=== PATIENT | female | born 1990 | race Caucasian/White ===

== ENCOUNTER 2017-10-18 01:26 | Inpatient (IN) | payer OTHER ==
[2017-10-18] MEDS ORDERED: Oxytocin 10 Units/1 ML SDV ONE (01:46)
[2017-10-18] MEDS ORDERED: Oxytocin 10 Units/1 ML SDV IM ONE (01:55)
--- NOTE | 2017-10-18 01:56 | PCM.LDHP ---
L&D History of Present Illness - General Date of Service: 10/18/17 Admit Problem/Dx: Patient Status Order with Admit Dx/Problem 10/18/17 01:53 Patient Status [ADT] Routine Admission Diagnosis/Problem Admission Diagnosis/Problem Normal Source of Information: Patient History Limitations: Reports: No Limitations - History of Present Illness Introduction:: 27 y/o at 38 5/7 wks who presented to L&D in active labor. Arrived on floor at 0130. Nursing called for delivery at 0133. 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: : 3 Para: 2 LMP (Approximate): Hematologic History: Reports: Anemia - Past Surgical History HEENT Surgical History: Reports: Tonsillectomy Musculoskeletal Surgical History: Reports: Arthroscopic Knee (2007 and 2011) Social & Family History - Family History Family Medical History: Noncontributory - Tobacco Use Smoking Status *Q: Never Smoker - Caffeine Use Caffeine Use: Reports: Soda - Alcohol Use Alcohol Use History: No - Recreational Drug Use Recreational Drug Use: No H&P Review of Systems - Review of Systems: Review Of Systems: See Below General: Reports: No Symptoms Pulmonary: Reports: No Symptoms Cardiovascular: Reports: No Symptoms Gastrointestinal: Reports: No Symptoms Genitourinary: Reports: No Symptoms Musculoskeletal: Reports: No Symptoms Psychiatric: Reports: No Symptoms L&D Exam - Exam Exam: See Below - Exam General: Alert, Oriented, Cooperative Lungs: Clear to Auscultation, Normal Respiratory Effort Cardiovascular: Regular Rate, Regular Rhythm GI/Abdominal Exam: Soft, Non-Tender Genitourinary: Other (Clamped cord present on exam. No tears) Extremities: Normal Inspection Skin: Warm, Dry, Intact - Problem List (1) 39 weeks gestation of SNOMED Code(s): 86913745 ICD Code: Z3A.39 - 39 WEEKS GESTATION OF Status: Acute Current Visit: Yes (2) Vaginal delivery SNOMED Code(s): 930763144 ICD Code: O80 - ENCOUNTER FOR FULL-TERM UNCOMPLICATED DELIVERY Status: Acute Current Visit: Yes (3) Rh negative state in antepartum period SNOMED Code(s): 857900053 ICD Code: O09.899 - SUPERVISION OF OTHER HIGH RISK PREGNANCIES, UNSP TRIMESTER; Z67.91 - UNSPECIFIED BLOOD TYPE, RH NEGATIVE Status: Acute Current Visit: Yes Problem List Initiated/Reviewed/Updated: Yes Orders Last 24hrs: Active Orders 24 hr Category Date Time Status Patient Status [ADT] Routine ADT 10/18/17 01:53 Ordered Activity as Tolerated [RC] PFP Care 10/18/17 01:53 Ordered Heart Tones [RC] ASDIRECTED Care 10/18/17 01:54 Ordered Non Stress Test [RC] PER UNIT ROUTINE Care 10/18/17 01:53 Ordered Vital Signs [RC] PER UNIT ROUTINE Care 10/18/17 01:53 Ordered TYPE AND SCREEN [BBK] Routine Lab 10/18/17 01:53 Ordered Oxytocin [Pitocin] Med 10/18/17 01:55 Once 10 unit IM ONETIME ONE Electronic Heart Tones Ext w TOCO [WOMSER] Oth 10/18/17 01:53 Ordered Routine Electronic Heart Tones Internal [WOMSER] Per Unit Oth 10/18/17 01:53 Ordered Routine Resuscitation Status Routine Resus Stat 10/18/17 01:53 Ordered Assessment/Plan Comment:: Patient arrived to floor at 0130. Called for delivery at 0133, however, patient with RN attended delivery at 0134. Per nursing report SROM as baby delivery. Tight nuchal that could not be reduced. Delivery occurred in L&D bathroom. Cord clamped and cut by nursing team and patient assisted to bed. I arrived at 0139. Cord blood obtained. Placenta allowed time to separate and then expelled. Patient with moderate bleeding at that time which responded to fundal massage and IM pitocin. Will assess baby blood type as mom Rh negative. Plans breast feeding.
--- NOTE | 2017-10-18 01:58 | PCM.LDHP ---
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: Musculoskeletal History: Reports: None Hematologic History: Reports: Anemia - Past Surgical History HEENT Surgical History: Reports: Oral Surgery Musculoskeletal Surgical History: Reports: Other (See Below) Social & Family History - Family History Family Medical History: Noncontributory - Caffeine Use Caffeine Use: Reports: Soda Orders Last 24hrs: Active Orders 24 hr Category Date Time Status Patient Status Manage Transfer [TRANSFER] Routine ADT 10/18/17 01:56 Ordered Patient Status [ADT] Routine ADT 10/18/17 01:53 Active Activity as Tolerated [RC] PFP Care 10/18/17 01:53 Active Heart Tones [RC] ASDIRECTED Care 10/18/17 01:54 Active Non Stress Test [RC] PER UNIT ROUTINE Care 10/18/17 01:53 Active Vital Signs [RC] PER UNIT ROUTINE Care 10/18/17 01:53 Active TYPE AND SCREEN [BBK] Routine Lab 10/18/17 01:53 Ordered Electronic Heart Tones Ext w TOCO [WOMSER] Oth 10/18/17 01:53 Ordered Routine Electronic Heart Tones Internal [WOMSER] Per Unit Oth 10/18/17 01:53 Ordered Routine Resuscitation Status Routine Resus Stat 10/18/17 01:53 Ordered
[2017-10-18] MEDS ORDERED: Witch Hazel Medicated Pads 100/Jar TOP PRN (02:08)
[2017-10-18] MEDS ORDERED: Ibuprofen 600 MG Tab PO PRN (02:08)
[2017-10-18] MEDS ORDERED: Lanolin 100% Cream 7 GM Tube TOP PRN (02:08)
[2017-10-18] MEDS ORDERED: Docusate Sodium 100 MG Cap PO PRN (02:08)
[2017-10-18] MEDS ORDERED: Benzocaine/Menthol 20%-0.5% Spray 56 GM Canister TOP PRN (02:08)
[2017-10-18] MEDS: Acetaminophen 325 MG Tab PO PRN ×2 (06:27→12:35)
--- NOTE | 2017-10-19 07:22 | PCM.DCSUM1 ---
Discharge Summary - Discharge Data Discharge Date: 10/19/17 Discharge Disposition: Home, Self-Care 01 Condition: Good - Discharge Diagnosis/Problem(s) (1) 39 weeks gestation of SNOMED Code(s): 75291726 ICD Code: Z3A.39 - 39 WEEKS GESTATION OF Status: Acute Current Visit: Yes (2) Vaginal delivery SNOMED Code(s): 837515993 ICD Code: O80 - ENCOUNTER FOR FULL-TERM UNCOMPLICATED DELIVERY Status: Acute Current Visit: Yes (3) Rh negative state in antepartum period SNOMED Code(s): 677219815 ICD Code: O09.899 - SUPERVISION OF OTHER HIGH RISK PREGNANCIES, UNSP TRIMESTER; Z67.91 - UNSPECIFIED BLOOD TYPE, RH NEGATIVE Status: Acute Current Visit: Yes - Patient Summary/Data Complications: None Consults: None Recommended Follow-up Testing/Procedures: Follow up in 2 weeks for check Hospital Course: 27 y/o presented at 38 5/7 wks in active labor. Delivered 4 minutes after arriving to the floor with RN attendant. Remainder of placenta delivered without issues. she did well and was discharged home on PPD#1 - Patient Instructions Diet: Regular Diet as Tolerated Activity: As Tolerated Activity, Other: Pelvic Rest for 6 weeks Driving: May Drive Today Showering/Bathing: May Shower Showering/Bathing, Other: May Bathe Notify Provider of: Fever, Increased Pain, Swelling and Redness, Drainage, Nausea and/or Vomiting - Discharge Plan *PRESCRIPTION DRUG MONITORING PROGRAM REVIEWED*: Not Applicable *COPY OF PRESCRIPTION DRUG MONITORING REPORT IN PATIENT TERRENCE: Not Applicable Home Medications: Home Meds Docusate Sodium [Colace] 100 mg PO BID PRN cap 10/18/17 [Rx] Ibuprofen [Motrin] 600 mg PO Q6H PRN tablet 10/18/17 [Rx] Witch Tasia [Tucks] 1 pad TOP ASDIRECTED PRN pad 10/18/17 [Rx] Patient Handouts: Tips for a Good Latch, Care After Vaginal Delivery Referrals: Liam Torres MD [Physician] - (2 weeks for check) - Discharge Summary/Plan Comment DC Time >30 min.: No - Patient Data Vitals - Most Recent: Last Vital Signs Temp 36.7 C 10/19/17 03:27 Pulse 73 10/19/17 03:27 Resp 18 10/19/17 03:27 BP 101/58 L 10/19/17 03:27 Pulse Ox 98 10/19/17 03:27 Weight - Most Recent: 102.965 kg I&O - Last 24 hours: Intake & Output 10/18/17 10/19/17 10/19/17 22:59 06:59 14:59 Intake Total 440 Balance 440 Lab Results - Last 24 hrs: Laboratory Results - last 24 hr 10/18/17 10/18/17 Range/Units 02:18 06:40 RPR Non-reactive (NONREACTIVE) Blood Type O NEGATIVE Gel Antibody Screen Negative Screen 0 ros/5 flds - neg RhIG Candidate? Yes Rhogam Indicated Yes, baby rh pos H Med Orders - Current: Current Medications Acetaminophen (Tylenol) 650 mg PO Q4H PRN PRN Reason: mild pain or fever Last Admin: 10/18/17 12:35 Dose: 650 mg Benzocaine/Menthol (Dermoplast Pain Relief [place]) 0 gm TOP ASDIRECTED PRN PRN Reason: Perineal Comfort Measure Last Admin: 10/18/17 06:29 Dose: 1 can Docusate Sodium (Colace) 100 mg PO BID PRN PRN Reason: Constipation Emollient Ointment (Lansinoh Hpa) 0 gm TOP ASDIRECTED PRN PRN Reason: Sore Nipples Ibuprofen (Motrin) 600 mg PO Q6H PRN PRN Reason: Mild pain or fever Last Admin: 10/18/17 02:32 Dose: 600 mg Witch Tasia (Tucks) 1 pad TOP ASDIRECTED PRN PRN Reason: Hemorrhoid pain Last Admin: 10/18/17 06:30 Dose: 1 can Discontinued Medications Oxytocin (Pitocin) Confirm Administered Dose 10 unit .ROUTE .STK-MED ONE Stop: 10/18/17 01:47 Last Admin: 10/18/17 02:34 Dose: Not Given Oxytocin (Pitocin) 10 unit IM ONETIME ONE Stop: 10/18/17 01:56 Last Admin: 10/18/17 01:56 Dose: 10 unit
--- NOTE | 2017-10-19 07:22 | PCM.PNPP ---
- General Info Date of Service: 10/19/17 Functional Status: Reports: Pain Controlled, Tolerating Diet, Ambulating, Urinating - Review of Systems General: Reports: No Symptoms Pulmonary: Reports: No Symptoms Cardiovascular: Reports: No Symptoms Gastrointestinal: Reports: No Symptoms Genitourinary: Reports: No Symptoms Musculoskeletal: Reports: No Symptoms - Patient Data Vital Signs - Most Recent: Last Vital Signs Temp 36.7 C 10/19/17 03:27 Pulse 73 10/19/17 03:27 Resp 18 10/19/17 03:27 BP 101/58 L 10/19/17 03:27 Pulse Ox 98 10/19/17 03:27 Weight - Most Recent: 102.965 kg I&O - Last 24 Hours: Intake & Output 10/18/17 10/19/17 10/19/17 22:59 06:59 14:59 Intake Total 440 Balance 440 Lab Results - Last 24 Hours: Laboratory Results - last 24 hr 10/18/17 10/18/17 Range/Units 02:18 06:40 RPR Non-reactive (NONREACTIVE) Blood Type O NEGATIVE Gel Antibody Screen Negative Screen 0 ros/5 flds - neg RhIG Candidate? Yes Rhogam Indicated Yes, baby rh pos H Med Orders - Current: Current Medications Acetaminophen (Tylenol) 650 mg PO Q4H PRN PRN Reason: mild pain or fever Last Admin: 10/18/17 12:35 Dose: 650 mg Benzocaine/Menthol (Dermoplast Pain Relief [place]) 0 gm TOP ASDIRECTED PRN PRN Reason: Perineal Comfort Measure Last Admin: 10/18/17 06:29 Dose: 1 can Docusate Sodium (Colace) 100 mg PO BID PRN PRN Reason: Constipation Emollient Ointment (Lansinoh Hpa) 0 gm TOP ASDIRECTED PRN PRN Reason: Sore Nipples Ibuprofen (Motrin) 600 mg PO Q6H PRN PRN Reason: Mild pain or fever Last Admin: 10/18/17 02:32 Dose: 600 mg Witch Tasia (Tucks) 1 pad TOP ASDIRECTED PRN PRN Reason: Hemorrhoid pain Last Admin: 10/18/17 06:30 Dose: 1 can Discontinued Medications Oxytocin (Pitocin) Confirm Administered Dose 10 unit .ROUTE .STK-MED ONE Stop: 07/17/18 01:47 Last Admin: 10/18/17 02:34 Dose: Not Given Oxytocin (Pitocin) 10 unit IM ONETIME ONE Stop: 10/18/17 01:56 Last Admin: 10/18/17 01:56 Dose: 10 unit - Infant Interaction Disposition, : in Room with Family Interaction: Holding Infant Feeding: Breastfed Infant; Nursed Well Support Person: - Recovery Exam Fundal Tone: Firm Fundal Level: 1 Fingerbreadths Below Umbilicus Fundal Placement: Midline Lochia Amount: Scant, Small Lochia Color: Rubra/Red Perineum Description: Intact, Minimal Bruising/Swelling Episiotomy/Laceration: None Bladder Status: Voiding Urinary Elimination: Voided - Exam General: Alert, Oriented, Cooperative GI/Abdominal Exam: Soft, Non-Tender Extremities: Normal Inspection Skin: Warm, Dry, Intact - Problem List & Annotations (1) 39 weeks gestation of SNOMED Code(s): 28805572 Code(s): Z3A.39 - 39 WEEKS GESTATION OF Status: Acute Current Visit: Yes (2) Vaginal delivery SNOMED Code(s): 333049867 Code(s): O80 - ENCOUNTER FOR FULL-TERM UNCOMPLICATED DELIVERY Status: Acute Current Visit: Yes (3) Rh negative state in antepartum period SNOMED Code(s): 153032803 Code(s): O09.899 - SUPERVISION OF OTHER HIGH RISK PREGNANCIES, UNSP TRIMESTER ; Z67.91 - UNSPECIFIED BLOOD TYPE, RH NEGATIVE Status: Acute Current Visit: Yes - Problem List Review Problem List Initiated/Reviewed/Updated: Yes - My Orders Last 24 Hours: My Active Orders 10/18/17 Breakfast Regular Diet [DIET] 10/19/17 02:08 Heat Therapy [OM.PC] PRN - Assessment Assessment:: 27 y/o G3 now P3 PPD#1 from - Plan Plan:: * Routine cares * Encourage breast feeding * Baby Rh positive, Rhogam given * Discharge home today
[2017-10-19 10:28] VITALS: BP 115/70
== END 2017-10-19 11:35 | disposition home or self-care (01) | DRG 775 ==
LOC: JD.OBCHECK 01:26 → JD.OB 01:26 → OBSVTOIN 01:34 → JD.OB 01:34 → JD.OBCHECK 01:52 → JD.OB 01:52 → UNDOADMOB 01:52 → JD.OB 01:52 → UNDOADMOB 01:53 → JD.OB 01:53 → JD.OBCHECK 01:56 → JD.OB 01:56
PROVIDERS: ADMIT Obstetrics & Gynecology; ATTEND Obstetrics & Gynecology
PROC: 10E0XZZ Delivery of Products of Conception, External Approach (ICD-10-PCS; principal; 2017-10-18)
PROC: 6A550ZT Pheresis of Cord Blood Stem Cells, Single (ICD-10-PCS; 2017-10-18)
PROC: 3E0234Z Introduction of Serum, Toxoid and Vaccine into Muscle, Percutaneous Approach (ICD-10-PCS; 2017-10-19)
DX: O69.1XX0 Labor and delivery complicated by cord around neck, with compression, not applicable or unspecified (principal); Z3A.38 38 weeks gestation of pregnancy; Z37.0 Single live birth; O26.893 Other specified pregnancy related conditions, third trimester; Z67.41 Type O blood, Rh negative
CPT/HCPCS: 36415; 59409; 85461; 86592; 86850; 86900; 86901; A9270-GY; J2590; J2790

== ENCOUNTER 2019-06-23 06:04 | Emergency (ER) | payer OTHER ==
[2019-06-23 06:23] VITALS: BP 128/83; PULSE 78
--- NOTE | 2019-06-23 06:45 | EDM.PDOC ---
ED HPI GENERAL MEDICAL PROBLEM - General Chief Complaint: ENT Problem Stated Complaint: TOOTHACHE/39+ WEEKS Time Seen by Provider: 06/23/19 06:23 Source of Information: Reports: Patient History Limitations: Reports: No Limitations - History of Present Illness INITIAL COMMENTS - FREE TEXT/NARRATIVE: Mrs. Jacobs is a very pleasant 28-year-old woman with no chronic medical issues, who states that she is approximately 39 weeks gestation, -0-0-3. She now presents to the ED stating that she has had a right lower tooth ache with pain radiating to her right ear, for the past week. She spoke to her dentist on or about 06/19/2019, and a root canal has been scheduled for July, after she delivers. She spoke to her dentist again yesterday, 06/22/2019, and he recommended Orajel, salt water gargles, and ice, however, these have been ineffective in controlling the patient's pain, and she states that she cannot rest. She may be able to see her dentist later today, versus tomorrow. No recent fever or oral drainage. She had some nausea yesterday, but no recent emesis. She denies recent chills, cough, dyspnea, chest pain, palpitations, constipation, diarrhea, abdominal pain, urinary symptoms, recent bloody bowel movements or black bowel movements, recent joint aches, headaches, or rashes. Here in the ED, the patient is found to be hemodynamically stable, afebrile, saturating 100% on room air. The patient does not have a PCP. Her Reconnaissance Crewmember is Dr. Liam Torres. She received an influenza vaccine this season. 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, Cold Therapy, Other (see below) Right Lower Tooth/Teeth Pain Score (Numeric/FACES): 8 - Related Data Allergies Allergy/AdvReac Type Severity Reaction Status Date / Time No Known Allergies Allergy Verified 06/23/19 06:22 Home Meds: Home Meds Docusate Sodium [Colace] 100 mg PO BID PRN cap 10/18/17 [Rx] Acetaminophen [Tylenol] 1,000 mg PO ASDIRECTED PRN 06/23/19 [History] Past Medical History : 4 Para: 3 - Past Surgical History HEENT Surgical History: Reports: Oral Surgery (wisdom teeth extracted), Tonsillectomy Musculoskeletal Surgical History: Reports: Arthroscopic Knee (right ACL repair x 2) Social & Family History - Family History Family Medical History: Noncontributory - Tobacco Use Smoking Status *Q: Never Smoker Second Hand Smoke Exposure: No - Caffeine Use Caffeine Use: Reports: Coffee - Alcohol Use Alcohol Use History: Yes Alcohol Use Frequency: Socially (when not ) - Recreational Drug Use Recreational Drug Use: No - Living Situation & Occupation Living situation: Reports: , with Spouse, with Family (3 kids) 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 ED EXAM, ENT - Physical Exam Exam: See Below Exam Limited By: No Limitations General Appearance: Alert, WD/WN, No Apparent Distress Eye Exam: Bilateral Eye: EOMI, Normal Inspection Ears: Normal External Exam, Normal Canal, Hearing Grossly Normal, Normal TMs Nose: Normal Inspection, Normal Mucousa, No Blood Mouth/Throat: Normal Inspection, Normal Gums, Normal Lips, Normal Oropharynx, Other (Tooth #1 absent. Tooth #2 with composite filling. Tooth #13 with composite filling. Tooth #16 absent. Tooth #17 absent. Tooth #18 with composite filling. Tooth #20 with composite filling. Tooth #30 (the tooth of concern) with metallic filling. No associated gingival swelling or pointing. Tooth #31 with positive filling. Tooth #32 absent.) Head: Atraumatic, Normocephalic Neck: Normal Inspection, Supple, Non-Tender, Full Range of Motion. No: Lymphadenopathy (L), Lymphadenopathy (R) Course - Vital Signs Last Recorded V/S: Last Vital Signs Temp 36.3 C 06/23/19 06:17 Pulse 78 06/23/19 06:17 Resp 20 06/23/19 06:17 BP 128/83 06/23/19 06:17 Pulse Ox 100 06/23/19 06:17 - Re-Assessments/Exams Free Text/Narrative Re-Assessment/Exam: 06/23/19 06:40 On examination, I do not see any abnormality to the gingiva surrounding tooth # 30, the tooth of concern, nothing to danna or drain, however, I explained to the patient that that does not mean that she does not have an underlying dental infection, and that because we do not have dental x-rays, we cannot rule that out. I recommended we start her on penicillin, and the patient agreed. As for an analgesic stronger than acetaminophen, I would need to talk to her Reconnaissance Crewmember. Case discussed with Dr. Torres at 06:35. He was comfortable with me prescribing both Gibson and penicillin for the patient. Since the patient drove herself here, I cannot give her Gibson here, but I can send her home with prescriptions via [facility] that she can take once she gets home. Departure - Departure Time of Disposition: 06:41 Disposition: Home, Self-Care 01 Condition: Good Clinical Impression: Dentalgia - Discharge Information *PRESCRIPTION DRUG MONITORING PROGRAM REVIEWED*: Not Applicable *COPY OF PRESCRIPTION DRUG MONITORING REPORT IN PATIENT TERRENCE: Not Applicable Instructions: Acute Pain, Adult Referrals: Liam Torres MD [Primary Care Provider] - Forms: ED Department Discharge Additional Instructions: You were seen in the emergency room for a right lower toothache pain that radiates to your right ear. No obvious infection was found on examination, however, since we do not have dental x-rays in the ER, an underlying dental infection cannot be ruled out. You have been given prescriptions for the antibiotic penicillin and the opioid pain reliever Gibson via [facility]. Take 1 tablet of penicillin every 6 hours, as prescribed. Finish the entire prescription unless told otherwise by your dentist. You may take 1 to 2 tablets of Gibson up to every 6 hours, as needed for pain. If you take Gibson, do not also take [id number] acetaminophen (Tylenol). If you take Gibson, do not drive for 12 hours afterwards. Gibson may cause constipation, so consider taking a stool softener. It is important that you follow-up with your dentist within the next 10 days. If any other problems, please do not hesitate to return to the ER. Sepsis Event Note - Evaluation Sepsis Screening Result: No Definite Risk - Focused Exam Vital Signs: Vital Signs Temp Pulse Resp BP Pulse Ox 06/23/19 06:17 36.3 C 78 20 128/83 100 Date Exam was Performed: 06/23/19 Time Exam was Performed: 07:15
== END 2019-06-23 07:10 | disposition home or self-care (01) ==
LOC: JD.ED 06:04
DX: K08.89 Other specified disorders of teeth and supporting structures (principal)
CPT/HCPCS: 99282; 99283

== ENCOUNTER 2019-06-27 03:24 | Inpatient (IN) | payer OTHER ==
[2019-06-27] MEDS ORDERED: Sodium Chloride 0.9% 10 ML Syringe FLUSH PRN (03:41)
[2019-06-27] MEDS ORDERED: Lactated Ringers 1,000 ML IV SCH (03:45)
[2019-06-27] MEDS ORDERED: Oxytocin/Lactated Ringers 10 UNIT/1,000 ML BAG IV SCH (04:45)
--- NOTE | 2019-06-27 05:57 | PCM.LDHP ---
L&D History of Present Illness - General Date of Service: 06/27/19 Admit Problem/Dx: Patient Status Order with Admit Dx/Problem 06/27/19 03:41 Patient Status [ADT] Routine Admission Diagnosis/Problem Admission Diagnosis/Problem 06/27/19 05:45 Debbie is a 28-year-old 4 para 3003 white female at 40-1/7 weeks gestational age with an CARLOS of 06/26/2019 was admitted on a.m. of 06/27/2019 in active labor with cervical dilation of 5 cm. Source of Information: Patient History Limitations: Reports: No Limitations - History of Present Illness Introduction:: Debbie is a 28-year-old 4 para 3003 white female at 40-1/7 weeks gestational age with an CARLOS of 06/26/2019 was admitted on a.m. of 06/27/2019 in active labor with cervical dilation of 5 cm.She began labor at approximately midnight and is progressed every 2-3 minute contractions which were moderate to strong in intensity. Her cervix is changed from her last evaluation in clinic of 2+ centimeters now 5 cm. Heart tones are reassuring. Patient desires a natural course of labor. 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 She had menarche at approximately age [age]. She is not using any control time conception. Her is dated by an LMP starting 09/19/2018 and supported by 2 ultrasounds done on 12/14/2018 end 11/08/2018 along with an additional one done on 02/22/2019. Patient has had a relatively unremarkable course. Her previous obstetric spirits includes the followin. Male born 05/12/2015 at 40 weeks gestational age after 22 hours of labor8 lbs. 9 oz.NSVDepiduralStYolanda [facility]. Female born 02/02/2018 at 38-6/7 weeks gestational age after 12 hours labor8 lbs. 14 oz.-NSVDepiduralStYolanda Lcakey's name is Marti 3. Male born 10/18/2019 at 39-5/7 weeks gestational age after 5 hours of laborNSVDno anesthesiaStYolanda Lackey's name is Faith Ann course: Patient's first visit was on 12/21/2018 at 13-2/7 weeks gestational age ultrasound done at that time was consistent with dates. She's had regular care since that time. She has had weight gain from 180.6 pounds up to 232 pounds for 44 pound increase. Her vital signs of in stable and fundal height growth has been appropriate during the course. Patient is group B strep negative. Her Mcintyre depression screening score was 0/30 on 02/26/2019. Only significant risk factors history of a macrosomic baby. She plans to breast-feed. She had noninvasive testing done on 12/21/2018 which was normal. She is Rh- and received RhoGAM on . She had her flu shot on 01/11/2019. Her T Dap was given on 05/28/2019. She is rubella immune. Other immunizations include HPV immunizations done in 2011. Hepatitis B immunizations in 2002. Hepatitis a immunizations 2011. Laboratory testing and shows her blood to be O- with a negative MRI screening. First hemoglobin was 12.6 g/dL. Platelets 287,000. She is rubella immune. RPR is nonreactive. Hepatitis B surface antigen and HIV assays were both negative. Chlamydia and gonorrhea assays were both negative. Second trimester labs showed hemoglobin of 11.9 g/dL. Platelets are 252,000. Diabetic screening test was 108. Her group B strep screen was negative. She was given RhoGAM on 04/03/2019. Allergies: None Medications: vitamins 1 daily Past medical history: 1. 3. Past surgical history: 1. Right ACL repair 2007 and again in 2011. 2. Tonsillectomy 2009 3. Martin teeth extraction 2008 Family history: Mother and father are alive and well. Father has questionable history of hypertension. Mother had breast cancer 20 years ago but is doing well now. She has 2 sisters who are alive and well. Neither have had problems. Maternal grandmother is alive and well. Maternal grandfather is secondary to an AR. Paternal grandfather secondary to an AR. Paternal grandmother is alive and in reasonable health with a history of hypercholesterolemia and hypertension. No bleeding, clotting, or anesthesia problems noted in the family. Social history: Patient is . is Kendrick is any significant most alcohol, drugs or tobacco. She is a college graduate. 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 She and her family live in [place], [place]. Review of systems: In general patient has no complaints other than contractions. Baby has been active. Skin: Negative Lungs: No infectious symptoms or shortness of breath Cardiovascular: No chest pain or exercise intolerance Breasts: Changes associated with . GI: Negative : Body habitus changes secondary to Musculoskeletal: Negative Neurological: Negative In general the patient is well-developed, well-nourished, pleasant female of stated age in no acute distress. Last evaluation in clinic blood pressure is 116/62. Weight was 232 pounds. heart rate is 138 BPM. Pre-gravid weight was 188.6 pounds. Height is 5 feet 11. Pregravid BMI is 25.5. Previously done physical exam showed the following: Skin is warm dry without lesions. HEENT, neck and back within normal limits. Lungs are clear with good breath sounds in all lung escoto. Cardiovascular exam shows regular and rhythm without murmurs. Abdomen is gravid with last fundal height of 39.5 cm.. Genital exam at last visit showed cervix to be 2+ and is, 80% effaced, soft, mid position, -3 station. She is now 5 cm and -1 station, mid position, very soft, artificial rupture membranes is undertaken with resultant clear amniotic fluid.. Extremities and neurological exam are grossly within normal limits. 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 CLERK History: Reports: Other OB/BYN History: pt currently Musculoskeletal History: Reports: None Hematologic History: Reports: Anemia - Past Surgical History HEENT Surgical History: Reports: Oral Surgery, Tonsillectomy Musculoskeletal Surgical History: Reports: Arthroscopic Knee Social & Family History - Family History Family Medical History: Noncontributory - Tobacco Use Smoking Status *Q: Never Smoker - Caffeine Use Caffeine Use: Reports: None - Recreational Drug Use Recreational Drug Use: No - Living Situation & Occupation Living situation: Reports: , with Spouse, with Family (3 kids) 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) H&P Review of Systems - Review of Systems: Review Of Systems: See Below L&D Exam - Exam Exam: See Below - Vital Signs Vital Signs: Last Vital Signs Temp 36.9 C 06/27/19 04:00 Pulse 86 06/27/19 04:00 Resp 16 06/27/19 04:00 BP 118/82 06/27/19 04:00 Pulse Ox 99 06/27/19 04:00 Weight: 105.687 kg - Patient Data Lab Results Last 24 hrs: Laboratory Results - last 24 hr 06/27/19 Range/Units 03:55 WBC 7.96 (3.98-10.04) K/mm3 RBC 4.00 (3.98-5.22) M/mm3 Hgb 12.2 (11.2-15.7) gm/dl Hct 37.7 (34.1-44.9) % MCV 94.3 (79.4-94.8) fl MCH 30.5 (25.6-32.2) pg MCHC 32.4 (32.2-35.5) g/dl RDW Std Deviation 46.4 H (36.4-46.3) fL Plt Count 265 (182-369) K/mm3 MPV 9.3 L (9.4-12.3) fl Neut % (Auto) 63.5 (34.0-71.1) % Lymph % (Auto) 22.9 (19.3-51.7) % [place] % (Auto) 11.6 (4.7-12.5) % Eos % (Auto) 0.9 (0.7-5.8) Baso % (Auto) 0.3 (0.1-1.2) % Neut # (Auto) 5.07 (1.56-6.13) K/mm3 Lymph # (Auto) 1.82 (1.18-3.74) K/mm3 [place] # (Auto) 0.92 H (0.24-0.36) K/mm3 Eos # (Auto) 0.07 (0.04-0.36) K/mm3 Baso # (Auto) 0.02 (0.01-0.08) K/mm3 Result Diagrams: 06/27/19 03:55 Problem List Initiated/Reviewed/Updated: Yes Orders Last 24hrs: Active Orders 24 hr Category Date Time Status Patient Status [ADT] Routine ADT 06/27/19 03:41 Active Activity as Tolerated [RC] PFP Care 06/27/19 03:41 Active Communication Order [RC] ASDIRECTED Care 06/27/19 03:41 Active Heart Tones [RC] ASDIRECTED Care 06/27/19 03:42 Active Non Stress Test [RC] PER UNIT ROUTINE Care 06/27/19 03:41 Active Notify Provider [RC] PFP Care 06/27/19 03:41 Active Notify Provider [RC] PRN Care 06/27/19 03:41 Active Peripheral IV Care [RC] . DIRECTED Care 06/27/19 03:42 Active Vital Signs [RC] PER UNIT ROUTINE Care 06/27/19 03:41 Active Regular Diet [DIET] Diet 06/27/19 Breakfast Active RAPID PLASMA REAGIN,RPR [CHEM] Routine Lab 06/27/19 03:55 Received Lactated Ringers [Ringers, Lactated] 1,000 ml Med 06/27/19 03:45 Active IV ASDIRECTED Oxytocin/Lactated Ringers [Pitocin in LR 10 Units/1,000 Med 06/27/19 04:45 Active ML] 10 unit in 1,000 ml IV TITRATE Sodium Chloride 0.9% [Saline Flush] Med 06/27/19 03:41 Active 10 ml FLUSH ASDIRECTED PRN Electronic Heart Tones Ext w TOCO [WOMSER] Oth 06/27/19 03:41 Ordered Routine Electronic Heart Tones Internal [WOMSER] Per Unit Oth 06/27/19 03:41 Ordered Routine Peripheral IV Insertion Adult [OM.PC] Routine Oth 06/27/19 03:41 Ordered Resuscitation Status Routine Resus Stat 06/27/19 03:41 Ordered Medication Orders Lactated Ringer's (Ringers, Lactated) 1,000 mls @ 100 mls/hr IV ASDIRECTED CARMEN Oxytocin/Lactated Ringer's (Pitocin In Lr 10 Units/1,000 Ml) 10 unit in 1,000 mls @ 12 mls/hr IV TITRATE CARMEN; Protocol Sodium Chloride (Saline Flush) 10 ml FLUSH ASDIRECTED PRN PRN Reason: Keep Vein Open Assessment/Plan Comment:: 1.40-1/7 week intrauterine , active labor, progressive cervical dilation. 2. Group B strep screen negative 3. Patient plans to breast-feed 4. Patient plans to natural labor 5. Patient is up-to-date regarding her T-dap, her flu shot. She is rubella immune. 6. Patient had prequel noninvasive screen which was normal 7. Only risk factor is history of macrosomic baby. Plan: 1. Anticipate 2. Routine labor care no 3. RPR and CBC upon admission 4. Support breast-feeding decision.
[2019-06-27] MEDS ORDERED: Ondansetron 4 MG/2 ML SDV IVPUSH PRN (07:21)
[2019-06-27] MEDS ORDERED: ePHEDrine 50 MG/ML SDV IVPUSH PRN (07:21)
[2019-06-27] MEDS ORDERED: fentaNYL 100 MCG/2 ML SDV EPIDUR PRN (07:21)
--- NOTE | 2019-06-27 07:27 | PCM.PREANE ---
Preanesthetic Assessment - Anesthesia/Transfusion/Family Hx Anesthesia History: Prior Anesthesia Without Reaction Family History of Anesthesia Reaction: No Transfusion History: No Prior Transfusion(s) Intubation History: Unknown - Review of Systems General: No Symptoms Pulmonary: No Symptoms Cardiovascular: No Symptoms Gastrointestinal: No Symptoms (GERD) Neurological: No Symptoms Other: Reports: None - Physical Assessment NPO Status Date: 06/27/19 NPO Status Time: 09:00 Vital Signs: Last Vital Signs Temp 36.9 C 06/27/19 04:00 Pulse 86 06/27/19 04:00 Resp 16 06/27/19 04:00 BP 118/82 06/27/19 04:00 Pulse Ox 99 06/27/19 04:00 Height: 1.78 m Weight: 105.687 kg ASA Class: 2 Mental Status: Alert & Oriented x3 Airway Class: Mallampati = 2 Dentition: Reports: Normal Dentition, Caries Thyro-Mental Finger Breadths: 3 Mouth Opening Finger Breadths: 3 ROM/Head Extension: Full Lungs: Clear to Auscultation, Normal Respiratory Effort Cardiovascular: Regular Rate, Regular Rhythm, No Murmurs - Lab Values: Laboratory Last Values WBC 7.96 K/mm3 (3.98-10.04) 06/27/19 03:55 RBC 4.00 M/mm3 (3.98-5.22) 06/27/19 03:55 Hgb 12.2 gm/dl (11.2-15.7) 06/27/19 03:55 Hct 37.7 % (34.1-44.9) 06/27/19 03:55 MCV 94.3 fl (79.4-94.8) 06/27/19 03:55 MCH 30.5 pg (25.6-32.2) 06/27/19 03:55 MCHC 32.4 g/dl (32.2-35.5) 06/27/19 03:55 RDW Std Deviation 46.4 fL (36.4-46.3) H 06/27/19 03:55 Plt Count 265 K/mm3 (182-369) 06/27/19 03:55 MPV 9.3 fl (9.4-12.3) L 06/27/19 03:55 Neut % (Auto) 63.5 % (34.0-71.1) 06/27/19 03:55 Lymph % (Auto) 22.9 % (19.3-51.7) 06/27/19 03:55 [place] % (Auto) 11.6 % (4.7-12.5) 06/27/19 03:55 Eos % (Auto) 0.9 (0.7-5.8) 06/27/19 03:55 Baso % (Auto) 0.3 % (0.1-1.2) 06/27/19 03:55 Neut # (Auto) 5.07 K/mm3 (1.56-6.13) 06/27/19 03:55 Lymph # (Auto) 1.82 K/mm3 (1.18-3.74) 06/27/19 03:55 [place] # (Auto) 0.92 K/mm3 (0.24-0.36) H 06/27/19 03:55 Eos # (Auto) 0.07 K/mm3 (0.04-0.36) 06/27/19 03:55 Baso # (Auto) 0.02 K/mm3 (0.01-0.08) 06/27/19 03:55 Above labs reviewed and noted and within acceptable ranges to proceed with epidural if desired. 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: pt currently Musculoskeletal History: Reports: None Hematologic History: Reports: Anemia - Past Surgical History HEENT Surgical History: Reports: Oral Surgery, Tonsillectomy Musculoskeletal Surgical History: Reports: Arthroscopic Knee - SUBSTANCE USE Smoking Status *Q: Never Smoker Recreational Drug Use History: No - HOME MEDS Home Medications: Home Meds L.acidoph,Paracasei, B.lactis [Probiotic] 1 tab PO DAILY 06/27/19 [History] YLH196/Iron Fumarate/FA/DSS [ 19 Tablet] 1 tab PO DAILY 06/27/19 [ History] - CURRENT (IN HOUSE) MEDS Current Meds: Current Medications Ephedrine Sulfate (Ephedrine Sulfate) 5 mg IVPUSH ASDIRECTED PRN PRN Reason: Hypotension Fentanyl (Sublimaze) 100 mcg EPIDUR Q3H PRN PRN Reason: Pain Fentanyl/Bupivacaine HCl (Fentanyl/Bupivacaine/Ns 2 Mcg-0.125% 100 Ml) 100 ml EPIDUR ASDIRECTED CARMEN Lactated Ringer's (Ringers, Lactated) 1,000 mls @ 100 mls/hr IV ASDIRECTED CARMEN Oxytocin/Lactated Ringer's (Pitocin In Lr 10 Units/1,000 Ml) 10 unit in 1,000 mls @ 12 mls/hr IV TITRATE CARMEN; Protocol Ondansetron HCl (Zofran) 4 mg IVPUSH ONETIME PRN PRN Reason: Nausea/Vomiting Sodium Chloride (Saline Flush) 10 ml FLUSH ASDIRECTED PRN PRN Reason: Keep Vein Open
[2019-06-27] MEDS ORDERED: Bupivacaine/fentaNYL/NS 100 ML Bag EPIDUR SCH (07:30)
--- NOTE | 2019-06-27 12:32 | PCM.SN ---
- Free Text/Narrative Note: Nallely is a 28-year-old 4 now para 4004 white female at 40-1/7 weeks gestational age with an CARLOS of 06/26/2019 was admitted on a.m. of 06/27/2019 in active labor with cervical dilation of 5 cm. Nallely progressed steadily to complete cervical dilation by approximately 1200 hrs. on 06/27/2019. With one push at 1207 hrs. she then delivered a viable, moralez, 4300 g (9 lbs. 8 oz.) male with Apgars of 8 and 9, a length of 22 inches in a direct occiput anterior position over an intact perineum. The baby was placed on mom's tummy. Nose and mouth were bulb suctioned. The umbilical cord was allowed to pulsate for approximately 2 minutes then was clamped 2 and cut. There were 3 blood vessels in the umbilical cord. Cord blood was obtained. It should be noted that upon delivery the baby Pitocin was continued at a rate of 500 mL per hour per protocol. This uterus firmed up and there was an average amount of bleeding only. Patient is noted to have an intact perineum and no suturing was required. The placenta delivered at 1212 hrs. in a Mtz presentation, appeared intact and complete and was discarded per patient desire. Estimated blood loss was 300 mL. Condition: Good. Patient plans to breast-feed.
[2019-06-27] MEDS ORDERED: Acetaminophen 325 MG Tab PO PRN (12:58)
[2019-06-27] MEDS ORDERED: Ibuprofen 600 MG Tab PO PRN (12:58)
[2019-06-27] MEDS ORDERED: Witch Hazel Medicated Pads 40/Jar TOP PRN (12:58)
[2019-06-27] MEDS ORDERED: Benzocaine/Menthol 20%-0.5% Spray 56 GM Canister TOP PRN (12:58)
[2019-06-27] MEDS ORDERED: Docusate Sodium 100 MG Cap PO PRN (12:58)
[2019-06-28] MEDS ORDERED: Prenatal Multivitamin with Calcium/Folic Acid/Iron Tab PO SCH (09:00)
--- NOTE | 2019-06-28 09:07 | PCM.DCSUM1 ---
Discharge Summary - Hospital Course Free Text/Narrative:: Nallely is a 28-year-old 4 now para 4004 white female at 40-1/7 weeks gestational age with an CARLOS of 06/26/2019 was admitted on a.m. of 06/27/2019 in active labor with cervical dilation of 5 cm. Nallely progressed steadily to complete cervical dilation by approximately 1200 hrs. on 06/27/2019. With one push at 1207 hrs. she then delivered a viable, moralez, 4300 g (9 lbs. 8 oz.) male with Apgars of 8 and 9, a length of 22 inches in a direct occiput anterior position over an intact perineum. The baby was placed on mom's tummy. Nose and mouth were bulb suctioned. The umbilical cord was allowed to pulsate for approximately 2 minutes then was clamped 2 and cut. There were 3 blood vessels in the umbilical cord. Cord blood was obtained. It should be noted that upon delivery the baby Pitocin was continued at a rate of 500 mL per hour per protocol. This uterus firmed up and there was an average amount of bleeding only. Patient is noted to have an intact perineum and no suturing was required. The placenta delivered at 1212 hrs. in a Mtz presentation, appeared intact and complete and was discarded per patient desire. Estimated blood loss was 300 mL. Patient is doing well. She is ambulating well, has minimal lochia, is voiding without concerns. Breast-feeding is going well. Condition: Good. Diagnosis: Stroke: No - Discharge Data Discharge Date: 06/28/19 Discharge Disposition: Home, Self-Care 01 Condition: Good - Referral to Home Health Primary Care Physician: Liam Torres MD - Patient Instructions Diet: Regular Diet as Tolerated (Nursing diet with increase calories calcium as recommended) Activity: As Tolerated (No intercourse or tampons until bleeding resolves) Driving: May Drive Today Showering/Bathing: May Shower (May take a bath) Notify Provider of: Fever, Increased Pain, Swelling and Redness, Nausea and/or Vomiting - Discharge Plan Home Medications: Home Meds L.acidoph,Paracasei, B.lactis [Probiotic] 1 tab PO DAILY 06/27/19 [History] IBG304/Iron Fumarate/FA/DSS [ 19 Tablet] 1 tab PO DAILY 06/27/19 [ History] Acetaminophen [Tylenol] 650 mg PO Q4H PRN tablet 06/28/19 [Rx] Ibuprofen [Motrin] 600 mg PO Q4H PRN tablet 06/28/19 [Rx] Referrals: Liam Torres MD [Primary Care Provider] - (Return to clinicDr. Torres6 weeks.) - Discharge Summary/Plan Comment DC Time >30 min.: No Discharge Summary/Plan Comment: Discharge instructions: 1. Discharge home 2. Diet, activity and follow-up discussed with patient. Recommend nursing diet with increased calories and calcium. 3. Precautions given concern increased pain, bleeding, temperature, signs/ symptoms of DVT/PE. 4. Medications per home medication was printed, discussed with and given to the patient. 5. Return to clinic-Dr. Torres[facility] in 6 weeks. Diagnosis: Term -delivered Condition: Good - Patient Data Vitals - Most Recent: Last Vital Signs Temp 36.5 C 06/28/19 04:45 Pulse 62 06/28/19 04:45 Resp 16 06/28/19 04:45 BP 114/57 L 06/28/19 04:45 Pulse Ox 99 06/28/19 04:45 Weight - Most Recent: 105.687 kg I&O - Last 24 hours: Intake & Output 06/27/19 06/28/19 06/28/19 22:59 06:59 14:59 Intake Total 320 Balance 320 Lab Results - Last 24 hrs: Laboratory Results - last 24 hr 06/27/19 Range/Units 03:55 RPR Non-reactive (NONREACTIVE) Med Orders - Current: Current Medications Acetaminophen (Tylenol) 650 mg PO Q4H PRN PRN Reason: mild pain or fever Benzocaine/Menthol (Dermoplast Pain Relief [place]) 0 gm TOP ASDIRECTED PRN PRN Reason: Perineal Comfort Measure Docusate Sodium (Colace) 100 mg PO BID PRN PRN Reason: Constipation Ibuprofen (Motrin) 600 mg PO Q4H PRN PRN Reason: Mild pain or fever Last Admin: 06/27/19 13:09 Dose: 600 mg Prenat Multivit/Drew/Iron/Folic Ac ( Plus Iron) 1 each PO DAILY CARMEN Last Admin: 06/28/19 08:33 Dose: Not Given Maria Isabel Dozier (Nuris) 1 pad TOP ASDIRECTED PRN PRN Reason: Perineal Comfort Measure Last Admin: 06/27/19 21:18 Dose: 1 applic Discontinued Medications Ephedrine Sulfate (Ephedrine Sulfate) 5 mg IVPUSH ASDIRECTED PRN PRN Reason: Hypotension Fentanyl (Sublimaze) 100 mcg EPIDUR Q3H PRN PRN Reason: Pain Fentanyl/Bupivacaine HCl (Fentanyl/Bupivacaine/Ns 2 Mcg-0.125% 100 Ml) 100 ml EPIDUR ASDIRECTED CARMEN Lactated Ringer's (Ringers, Lactated) 1,000 mls @ 100 mls/hr IV ASDIRECTED CARMEN Oxytocin/Lactated Ringer's (Pitocin In Lr 10 Units/1,000 Ml) 10 unit in 1,000 mls @ 12 mls/hr IV TITRATE CARMEN; Protocol Last Titration: 06/27/19 12:10 Dose: 500 munits/min, 3,000 mls/hr Ondansetron HCl (Zofran) 4 mg IVPUSH ONETIME PRN PRN Reason: Nausea/Vomiting Sodium Chloride (Saline Flush) 10 ml FLUSH ASDIRECTED PRN PRN Reason: Keep Vein Open
[2019-06-28 10:01] VITALS: BP 117/72; PULSE 68
== END 2019-06-28 13:35 | disposition home or self-care (01) | DRG 807 ==
LOC: JD.OBCHECK 03:24 → JD.OB 03:29 → JD.OBCHECK 03:41 → JD.OB 05:13 → OBSVTOIN 12:07 → JD.OB 12:08
PROVIDERS: ADMIT Obstetrics & Gynecology; ATTEND Obstetrics & Gynecology
PROC: 10E0XZZ Delivery of Products of Conception, External Approach (ICD-10-PCS; principal; 2019-06-27)
PROC: 10907ZC Drainage of Amniotic Fluid, Therapeutic from Products of Conception, Via Natural or Artificial Opening (ICD-10-PCS; 2019-06-27)
DX: O48.0 Post-term pregnancy (principal); Z37.0 Single live birth; Z3A.40 40 weeks gestation of pregnancy; O69.1XX0 Labor and delivery complicated by cord around neck, with compression, not applicable or unspecified
CPT/HCPCS: 36415; 59025; 59409; 85025; 86592; A9270-GY; J2590